=== PATIENT | male | born 1950 | race Asian ===

== ENCOUNTER 2023-05-18 08:39 | Day surgery (SDC) | payer OTHER ==
[~2023-05-18] VITALS: Ht 167.6 cm; Wt 70.9 kg
[~2023-05-18 08:39] MED LIST: CYCLOPENTOLATE HCL 1% 2 ML OPHTHALMIC SOLUTION ONE; EPINEPHrine 1:1,000 [1 MG/ML] VIAL ONE; KETOROLAC TROMETHAMINE 0.5% 5 ML OPHTHALMIC SOLUTION ONE; MOXIFLOXACIN HCL 0.5% 3 ML OPHTHALMIC SOLUTION ONE; PHENYLEPHRINE HCL 2.5% 2 ML OPHTHALMIC SOLUTION ONE; PROPARACAINE HCL 0.5% 15 ML OPHTHALMIC SOLUTION ONE; RINGERS SOLUTION,LACTATED 500 ML IV ONE; TROPICAMIDE 1% 2 ML OPHTHALMIC SOLUTION ONE
[2023-05-18] MEDS ORDERED: TETRACAINE HCL/PF 0.5% 4 ML OPHTHALMIC SOLUTION ONE (08:40)
[2023-05-18] MEDS ORDERED: POVIDONE-IODINE 5% 30 ML OPHTHALMIC SOLUTION ONE (08:41)
[2023-05-18] MEDS ORDERED: BALANCED SALT 15 ML OPHTHALMIC IRRIG.SOLN ONE (08:42)
[2023-05-18] MEDS ORDERED: LIDOCAINE/PF 1% 2 ML VIAL ONE (08:43)
[2023-05-18] MEDS ORDERED: PrednisoLONE ACETATE 1% 5 ML OPHTHALMIC SUSPENSION ONE (08:58)
[2023-05-18] MEDS ORDERED: LISI2.5T13 PO (09:30)
[2023-05-18] MEDS ORDERED: ATOR10TA69 PO (09:30)
[2023-05-18] MEDS ORDERED: GLIP-102 PO (09:30)
[2023-05-18] MEDS: TROPICAMIDE 1% 2 ML OPHTHALMIC SOLUTION OD SCH ×3 (09:32→10:12)
[2023-05-18] MEDS: KETOROLAC TROMETHAMINE 0.5% 5 ML OPHTHALMIC SOLUTION OD SCH ×3 (09:32→10:12)
[2023-05-18] MEDS: CYCLOPENTOLATE HCL 1% 2 ML OPHTHALMIC SOLUTION OD SCH ×3 (09:32→10:12)
[2023-05-18] MEDS: MOXIFLOXACIN HCL 0.5% 3 ML OPHTHALMIC SOLUTION OD SCH ×3 (09:32→10:12)
[2023-05-18] MEDS: PHENYLEPHRINE HCL 2.5% 2 ML OPHTHALMIC SOLUTION OD SCH ×3 (09:32→10:12)
[2023-05-18 09:51] LABS: GLUCOMETER DEV NAME(LOC) SDS.; GLUCOSE,POINT OF CARE 116 MG/DL (70-110)
[2023-05-18] MEDS ORDERED: RINGERS SOLUTION,LACTATED 500 ML IV ONE (10:00)
[2023-05-18] MEDS ORDERED: PROPARACAINE HCL 0.5% 15 ML OPHTHALMIC SOLUTION OD ONE (11:00)
[2023-05-18] MEDS ORDERED: HYALURONATE SOD 8.5MG/0.85ML 10 MG/ML SYRINGE IO ONE (12:00)
[2023-05-18] MEDS ORDERED: MIDAZOLAM HCL 2 MG/2 ML VIAL IVP ONE (12:00)
[2023-05-18] MEDS ORDERED: HYALURONATE SOD/CHONDROITIN SOD 0.5 ML VIAL IO ONE (12:00)
[2023-05-18] MEDS ORDERED: FentaNYL CITRATE PF 100 MCG/2 ML VIAL IVP ONE (12:00)
== END 2023-05-18 13:10 | disposition home or self-care (01) ==
LOC: SURGERY 08:39
PROVIDERS: ATTEND Ophthalmology
DX: H25.11 Age-related nuclear cataract, right eye (principal); E78.00 Pure hypercholesterolemia, unspecified; I10 Essential (primary) hypertension; Z79.899 Other long term (current) drug therapy; Z87.891 Personal history of nicotine dependence; Z87.01 Personal history of pneumonia (recurrent); Z98.890 Other specified postprocedural states; Z91.013 Allergy to seafood
CPT/HCPCS: 66984; 82962; 93005; J0171; J3010; J3490; J2250; Q9967; J7120; V2632